=== PATIENT | female | born 1990 ===

== ENCOUNTER 2020-04-25 07:00 | Outpatient (CLI) | payer OTHER ==
[2020-04-26 20:53] LABS: CANDIDA KRUSEI DNA NEGATIVE (NEGATIVE); TRICHOMONAS VAGINALIS DNA NEGATIVE (NEGATIVE)
[2020-04-26 20:54] LABS: CANDIDA GROUP DNA POSITIVE (NEGATIVE)
== END 2020-04-25 23:59 | disposition home or self-care (01) ==
LOC: LAB.R 07:00
PROVIDERS: ATTEND Obstetrics & Gynecology
DX: N89.8 Other specified noninflammatory disorders of vagina (principal)
CPT/HCPCS: 87661; 87801

== ENCOUNTER 2020-05-09 07:00 | Outpatient (CLI) | payer OTHER ==
[2020-05-09 16:10] LABS: BILIRUBIN,URINE NEGATIVE (NEGATIVE); GLUCOSE, URINE (UA) 250 mg/dL (NEGATIVE); KETONES,URINE (UA) NEGATIVE (NEGATIVE); LEUKOCYTE ESTERASE, URINE NEGATIVE (NEGATIVE); NITRITE,URINE NEGATIVE (NEGATIVE); OCCULT BLOOD,URINE NEGATIVE (NEGATIVE); PH,URINE 6.5 PH (5.0-7.5); PROTEIN,URINE NEGATIVE (NEGATIVE); UROBILINOGEN,URINE 0.2 (NORMAL) E.U./dL (NORMAL)
[2020-05-09 16:18] LABS: CLARITY,URINE CLOUDY (CLEAR)
[2020-05-09 16:19] LABS: BACTERIA,URINE None Seen /HPF (None Seen); RBC,URINE None Seen /HPF (0-5); SQUAMOUS EPITHELIAL CELL,UR MANY Squamous (<= Few)
[2020-05-09 20:10] LABS: CANDIDA GROUP DNA NEGATIVE (NEGATIVE); CANDIDA KRUSEI DNA NEGATIVE (NEGATIVE); TRICHOMONAS VAGINALIS DNA NEGATIVE (NEGATIVE)
== END 2020-05-09 23:59 | disposition home or self-care (01) ==
LOC: LAB.R 07:00
PROVIDERS: ATTEND Obstetrics & Gynecology
DX: Z36.89 Encounter for other specified antenatal screening (principal); N89.8 Other specified noninflammatory disorders of vagina
CPT/HCPCS: 81001; 87086; 87661; 87801

== ENCOUNTER 2020-05-10 09:29 | Outpatient (CLI) | payer OTHER ==
[2020-05-10 09:43] LABS: BASOPHILS % (AUTO) 0.3 %; EOSINOPHILS # (AUTO) 0.1 10^3/uL (0.0-0.7); EOSINOPHILS % (AUTO) 1.9 %; HGB - HEMOGLOBIN 11.7 g/dL (12.0-16.0); LYMPHOCYTES # (AUTO) 1.6 10^3/uL (1.5-3.5); MEAN CORPUSCULAR HEMOGLOBIN 29.5 pg (27.0-31.0); MEAN CORPUSCULAR VOLUME 89.4 fL (81.0-99.0); MEAN PLATELET VOLUME 10.1 fL (7.9-10.8); MONOCYTES # (AUTO) 0.5 10^3/uL (0.0-1.0); MONOCYTES % (AUTO) 7.3 %; NEUTROPHILS # (AUTO) 4.7 10^3/uL (1.5-6.6); NEUTROPHILS % (AUTO) 67.1 %; PLT - PLATELET COUNT 278 10^3/uL (130-450); RED BLOOD COUNT 3.97 10^6/uL (4.20-5.40)
[2020-05-11 09:46] LABS: HIV AG/AB 4TH GEN NON-REACTIVE (NON-REACTIVE)
[2020-05-11 13:46] LABS: HEPATITIS B SURFACE ANTIGEN NON-REACTIVE (NON-REACTIVE); HEPATITIS C ANTIBODY NON-REACTIVE (NON-REACTIVE)
== END 2020-05-10 09:30 | disposition home or self-care (01) ==
LOC: LAB 09:29
PROVIDERS: ATTEND Obstetrics & Gynecology
DX: Z36.89 Encounter for other specified antenatal screening (principal)
CPT/HCPCS: 36415; 81599; 85025; 86592; 86762; 86803; 86850; 86900; 86901; 87340; 87389

== ENCOUNTER 2020-05-24 09:52 | Outpatient (CLI) | payer OTHER ==
[2020-05-24 10:50] LABS: THYROID STIMULATING HORMONE 2.26 uIU/mL (0.34-5.60)
[2020-05-24 10:52] LABS: FREE T4 (FREE THYROXINE) 0.88 ng/dL (0.58-1.64)
[2020-05-24 11:54] LABS: HEMOGLOBIN A1c% 6.6 % (4.27-6.07)
== END 2020-05-24 09:53 | disposition home or self-care (01) ==
LOC: LAB 09:52
PROVIDERS: ATTEND Obstetrics & Gynecology
DX: O24.019 Pre-existing type 1 diabetes mellitus, in pregnancy, unspecified trimester (principal); E10.9 Type 1 diabetes mellitus without complications; Z3A.00 Weeks of gestation of pregnancy not specified
CPT/HCPCS: 36415; 83036; 84439; 84443

== ENCOUNTER 2020-06-06 07:00 | Outpatient (CLI) | payer OTHER ==
[2020-06-06 17:37] LABS: CREATININE 24 HOUR,URINE 1693 mg/24h (600-1800); CREATININE,URINE 67.7 mg/dL; TOTAL VOLUME 24HRS,URINE 2500 mL
[2020-06-06 17:47] LABS: TOTAL PROTEIN,URINE TIMED < 6 mg/dL
== END 2020-06-06 23:59 | disposition home or self-care (01) ==
LOC: LAB.R 07:00
PROVIDERS: ATTEND Obstetrics & Gynecology
DX: O09.90 Supervision of high risk pregnancy, unspecified, unspecified trimester (principal); E10.9 Type 1 diabetes mellitus without complications
CPT/HCPCS: 82570; 84156

== ENCOUNTER 2020-09-23 08:41 | Outpatient (CLI) | payer BC ==
[2020-09-23 09:55] VITALS: BP 115/65
[2020-09-23] MEDS ORDERED: FERRIC GLUCONATE 125 MG in SODIUM CHLORIDE 0.9% 100ML 100 ML IV ONE (10:00)
--- NOTE | 2020-10-05 07:46 | PROVIDER PROGRESS NOTE ---
Subjective - Subjective Subjective: Pt received IV iron transfusion on 09/23/20 Diagnosis: iron deficiency anemia, chronic
== END 2020-09-23 11:10 | disposition home or self-care (01) ==
LOC: WFO 08:41 → FBP 08:56 → WFO 11:10
PROVIDERS: ATTEND Obstetrics & Gynecology
DX: O99.019 Anemia complicating pregnancy, unspecified trimester (principal); D50.9 Iron deficiency anemia, unspecified; Z3A.00 Weeks of gestation of pregnancy not specified
CPT/HCPCS: 96365; J2916

== ENCOUNTER 2020-10-02 07:55 | Outpatient (CLI) | payer BC ==
[2020-10-02 09:20] VITALS: BP 109/82
--- NOTE | 2020-10-04 08:53 | PROCEDURE REPORT ---
- HPI Diagnosis/Indication for NST: Pre- Diabetes Current EDU 11/26/20 Gestation 32 Weeks and 1 Days 2 Para 1 Vital Signs Temperature 99.1 F 10/02/20 08:05 Heart Rate 92 10/02/20 08:05 Respiratory Rate 18 10/02/20 08:05 Blood Pressure 109/82 H 10/02/20 08:05 O2 Saturation 100 10/02/20 08:05 Temperature 99.1 F 10/02/20 08:05 Heart Rate 92 10/02/20 08:05 Respiratory Rate 18 10/02/20 08:05 Blood Pressure 109/82 H 10/02/20 08:05 O2 Saturation 100 10/02/20 08:05 - NST Procedure NST Procedure Start Date 10/02/20 Start Time 08:04 Stop Time 08:36 Vibroacoustic Stimulation Used Yes Patient States Movement Yes EFM 135 mod martin 15x15 accels no decels TOCO: quiet - Results and Plan Findings/Impression: 30 yo at 32+1 wga with complicated by Type I DM here for NST Cat I tracing Cont twice weekly NST and weekly YA Q4 week growth Delivery at [facility] DX: IUP at 32+1 T1DM
--- NOTE | 2020-10-06 21:49 | PROCEDURE REPORT ---
- HPI Diagnosis/Indication for NST: Pre- Diabetes Current EDU 11/26/20 Gestation 32 Weeks and 1 Days 2 Para 1 Vital Signs Temperature 99.1 F 10/02/20 08:05 Heart Rate 92 10/02/20 08:05 Respiratory Rate 18 10/02/20 08:05 Blood Pressure 109/82 H 10/02/20 08:05 O2 Saturation 100 10/02/20 08:05 Temperature 99.1 F 10/02/20 08:05 Heart Rate 92 10/02/20 08:05 Respiratory Rate 18 10/02/20 08:05 Blood Pressure 109/82 H 10/02/20 08:05 O2 Saturation 100 10/02/20 08:05 - NST Procedure NST Procedure Start Date 10/02/20 Start Time 08:04 Stop Time 08:36 Vibroacoustic Stimulation Used Yes Patient States Movement Yes EFM 140 mod martin 15x15 accel no decels TOCO: quiet - Results and Plan Findings/Impression: 30 yo at 32+1 wga with T1DM here for NST Cat I tracing Cont with twice weekly monitoring and weekly YA Plans to deliver at [facility] DX: Type I DM in
== END 2020-10-02 08:45 | disposition home or self-care (01) ==
LOC: WFO 07:55 → FBP 07:59 → WFO 08:45
PROVIDERS: ATTEND Obstetrics & Gynecology
DX: O24.013 Pre-existing type 1 diabetes mellitus, in pregnancy, third trimester (principal); Z3A.32 32 weeks gestation of pregnancy
CPT/HCPCS: 59025

== ENCOUNTER 2020-10-05 09:42 | Outpatient (CLI) | payer BC ==
[2020-10-05 09:53] VITALS: BP 125/75
== END 2020-10-05 10:15 | disposition home or self-care (01) ==
LOC: WFO 09:42 → FBP 09:46 → WFO 10:15
PROVIDERS: ATTEND Obstetrics & Gynecology
DX: O09.93 Supervision of high risk pregnancy, unspecified, third trimester (principal); O24.013 Pre-existing type 1 diabetes mellitus, in pregnancy, third trimester; O99.013 Anemia complicating pregnancy, third trimester; D64.9 Anemia, unspecified; Z3A.32 32 weeks gestation of pregnancy
CPT/HCPCS: 59025

== ENCOUNTER 2020-10-05 10:16 | Outpatient (CLI) | payer BC ==
--- NOTE | 2020-10-05 14:18 | Ultrasound Report ---
PROCEDURE: OB Limited INDICATIONS: ANEMIA IN , DM, SUPER OF HIGH RISK PREG OUTSIDE/PRIOR DATING DATA: Last menstrual period (LMP): 02/20/2020. LMP-based estimated date of delivery (DAYANARA): 11/26/2020. First dating scan (date and location): Outside facility on 04/22/2020. Estimated date of delivery (DAYANARA) from first dating scan: 11/26/2020 (provider stated). TECHNIQUE: Real-time scanning was performed of the fetus, with image documentation. Endovaginal scanning: Not performed COMPARISON: 04/22/2020. FINDINGS: A single living intrauterine gestation is present. Presentation: Vertex Placenta: Placental position is right lateral anterior, without previa. Amniotic fluid index: 15.3 cm, 56 percentile for gestational age. Largest pocket: 6.9 cm heart rate: 153 beats per minutes. Maternal cervical canal: Visibly long and closed. Estimated gestational age from initial scan: 32 weeks and 4 days Visualized portions of the chest/diaphragm, stomach/abdomen, bilateral kidneys, and urinary robina dder appear unremarkable.. IMPRESSION: Single living intrauterine gestation with estimated gestational age of approximately 32 weeks and 4 d ays. Four-quadrant YA measures 15.3 cm which correlates with the 56th percentile for gestational age. Lar gest pocket measures 6.9 cm. Reviewed by: Jose F Munoz MD on 10/05/2020 2:16 PM PST Approved by: Jose F Munoz MD on 10/05/2020 2:16 PM PST Station ID: [id number]
--- NOTE | 2020-10-06 21:53 | PROCEDURE REPORT ---
- HPI Diagnosis/Indication for NST: Gestational Diabetes 30 yo at 32+4 wga with Type I DM here for NST - NST Procedure NST Procedure Start Time 09:50 Stop Time 10:14 EFM 140 mod martin 15x15 accels no decels TOCO: quiet - Results and Plan Findings/Impression: 30 yo at 32+4 wga with T1DM here for NST Cat I tracing Cont with twice weekly NST and weekly YA Deliver at 39 wga or as per M Plans to delivery at [facility] DX: Type I DM and
== END 2020-10-05 10:17 | disposition home or self-care (01) ==
LOC: DI 10:16
PROVIDERS: ATTEND Obstetrics & Gynecology
DX: O99.013 Anemia complicating pregnancy, third trimester (principal); D64.9 Anemia, unspecified; O09.93 Supervision of high risk pregnancy, unspecified, third trimester; O24.013 Pre-existing type 1 diabetes mellitus, in pregnancy, third trimester; E10.9 Type 1 diabetes mellitus without complications; Z3A.32 32 weeks gestation of pregnancy

== ENCOUNTER 2020-10-10 17:30 | Outpatient (CLI) | payer BC ==
[2020-10-10 17:49] VITALS: BP 120/76
--- NOTE | 2020-10-13 08:38 | PROCEDURE REPORT ---
- HPI Diagnosis/Indication for NST: Gestational Diabetes Current EDU 11/26/20 Gestation 33 Weeks and 2 Days 2 Para 1 Vital Signs Temperature 37.1 C 10/10/20 17:42 Heart Rate 97 10/10/20 17:42 Respiratory Rate 18 10/10/20 17:42 Blood Pressure 120/76 10/10/20 17:42 O2 Saturation 98 10/10/20 17:42 Temperature 37.1 C 10/10/20 17:42 Heart Rate 97 10/10/20 17:42 Respiratory Rate 18 10/10/20 17:42 Blood Pressure 120/76 10/10/20 17:42 O2 Saturation 98 10/10/20 17:42 - NST Procedure NST Procedure Start Date 10/10/20 Start Time 17:39 Stop Time 17:59 Vibroacoustic Stimulation Used No Patient States Movement Yes - Results and Plan Findings/Impression: REACTIVE NST Plan: CONTINUE ANTINATAL TESTING
== END 2020-10-10 18:04 | disposition home or self-care (01) ==
LOC: WFO 17:30 → FBP 17:34 → WFO 18:04
PROVIDERS: ATTEND Obstetrics & Gynecology
DX: O24.419 Gestational diabetes mellitus in pregnancy, unspecified control (principal); Z3A.33 33 weeks gestation of pregnancy
CPT/HCPCS: 59025

== ENCOUNTER 2020-10-12 08:05 | Outpatient (CLI) | payer BC ==
--- NOTE | 2020-10-12 17:08 | Ultrasound Report ---
PROCEDURE: OB Limited INDICATIONS: ANEMIA IN , DM, SUPER OF HIGH RISK PREG OUTSIDE/PRIOR DATING DATA: Last menstrual period (LMP): 02/20/2020. LMP-based estimated date of delivery (DAYANARA): 11/26/2020. First dating scan (date and location): 04/22/2020 at outside institution. Estimated date of delivery (DAYANARA) from first dating scan: 11/26/2020 (provider stated DAYANARA). TECHNIQUE: Real-time scanning was performed of the fetus, with image documentation. Endovaginal scanning: Not performed COMPARISON: 10/05/2020 FINDINGS: A single living intrauterine gestation is present. Presentation: Vertex Placenta: Placental position is right lateral anterior, without previa. Amniotic fluid index: 15.1 cm, this correlates with the 55th percentile for gestational age. heart rate: 143 beats per minutes. Maternal cervical canal: Maternal cervix appears visibly long and closed. Estimated gestational age from initial scan: 33 weeks and 4 days. IMPRESSION: 1. Single living intrauterine gestation with estimated gestational age of approximately 33 weeks and 4 days. 2. Four-quadrant YA measuring 15.1 cm which correlates with the 55th percentile for gestational age. Largest vertical pocket measured 7.5 cm. Reviewed by: Jose F Munoz MD on 10/12/2020 5:07 PM PST Approved by: Jose F Munoz MD on 10/12/2020 5:07 PM PST Station ID: [id number]
== END 2020-10-12 08:06 | disposition home or self-care (01) ==
LOC: DI 08:05
PROVIDERS: ATTEND Obstetrics & Gynecology
DX: O99.019 Anemia complicating pregnancy, unspecified trimester (principal); O09.90 Supervision of high risk pregnancy, unspecified, unspecified trimester; O24.919 Unspecified diabetes mellitus in pregnancy, unspecified trimester; Z3A.33 33 weeks gestation of pregnancy

== ENCOUNTER 2020-10-12 08:35 | Outpatient (CLI) | payer BC ==
[2020-10-12 08:48] VITALS: BP 112/69
--- NOTE | 2020-10-22 22:15 | PROCEDURE REPORT ---
- HPI Diagnosis/Indication for NST: Pre- Diabetes Current EDU 11/26/20 Gestation 33 Weeks and 4 Days 2 Para 1 Vital Signs Heart Rate 97 10/12/20 08:46 Respiratory Rate 17 10/12/20 08:46 Blood Pressure 112/69 10/12/20 08:46 O2 Saturation 99 10/12/20 08:46 Temperature 98.2 F 10/12/20 08:48 Heart Rate 97 10/12/20 08:46 Respiratory Rate 17 10/12/20 08:46 Blood Pressure 112/69 10/12/20 08:46 O2 Saturation 99 10/12/20 08:46 - NST Procedure NST Procedure Start Date 10/12/20 Start Time 08:45 Stop Time 09:30 Vibroacoustic Stimulation Used Yes Patient States Movement Yes EFM 130 mod martin 15x15 accels no decel TOCO: quiet - Results and Plan Findings/Impression: Patient is a 30 yo at 33+4 wga with affected by Type I DM here for NST and YA Cat I tracing YA 15.3 Cont with twice weekly NST and weekly YA Delivery at at 39 wga FINAL DX: IUP at 33+4 Type I DM
== END 2020-10-12 09:45 | disposition home or self-care (01) ==
LOC: FBP 08:35 → WFO 08:35
PROVIDERS: ATTEND Obstetrics & Gynecology
DX: O09.90 Supervision of high risk pregnancy, unspecified, unspecified trimester (principal); O24.013 Pre-existing type 1 diabetes mellitus, in pregnancy, third trimester; O99.019 Anemia complicating pregnancy, unspecified trimester; Z3A.33 33 weeks gestation of pregnancy
CPT/HCPCS: 59025

== ENCOUNTER 2020-10-16 09:47 | Outpatient (CLI) | payer BC ==
[2020-10-16 10:04] VITALS: BP 113/80
--- NOTE | 2020-10-22 22:11 | PROCEDURE REPORT ---
- HPI Diagnosis/Indication for NST: Pre- Diabetes Current EDU 11/26/20 Gestation 34 Weeks and 1 Days 2 Para 1 Vital Signs Temperature 98.2 F 10/16/20 10:02 Heart Rate 103 H 10/16/20 10:02 Respiratory Rate 18 10/16/20 10:02 Blood Pressure 113/80 10/16/20 10:02 O2 Saturation 100 10/16/20 10:02 Temperature 98.2 F 10/16/20 10:02 Heart Rate 103 H 10/16/20 10:02 Respiratory Rate 18 10/16/20 10:02 Blood Pressure 113/80 10/16/20 10:02 O2 Saturation 100 10/16/20 10:02 - NST Procedure NST Procedure Start Date 10/16/20 Start Time 09:57 Stop Time 10:45 Vibroacoustic Stimulation Used Yes Patient States Movement Yes EFM 145 mod martin 15x15 accels. one variable decel with 30 minutes of additional cat I tracing following TOCO: Quiet - Results and Plan Findings/Impression: Patient is a 30 yo at 34+1 wga with affected by T1DM here for NST Plan: Cat I tracing Cont with twice weekly NST and weekly YA To deliver at at 39 wga FINAL DX: Type I DM IUP at 34+1 wga
== END 2020-10-16 10:50 | disposition home or self-care (01) ==
LOC: WFO 09:47 → FBP 09:51 → WFO 10:50
PROVIDERS: ATTEND Obstetrics & Gynecology
DX: O24.013 Pre-existing type 1 diabetes mellitus, in pregnancy, third trimester (principal); Z3A.34 34 weeks gestation of pregnancy
CPT/HCPCS: 59025

== ENCOUNTER 2020-10-20 08:44 | Outpatient (CLI) | payer BC ==
--- NOTE | 2020-10-20 17:00 | Ultrasound Report ---
PROCEDURE: OB Limited INDICATIONS: ANEMIA IN , DM, SUPER OF HIGH RISK PREG OUTSIDE/PRIOR DATING DATA: Last menstrual period (LMP): 02/20/2020. LMP-based estimated date of delivery (DAYANARA): 11/26/2020. First dating scan (date and location): 04/22/2020. Estimated date of delivery (DAYANARA) from first dating scan: 11/23/2020. TECHNIQUE: Real-time scanning was performed of the fetus, with image documentation. Endovaginal scanning: Not needed COMPARISON: All prior OB ultrasound studies for this .. FINDINGS: A single living intrauterine gestation is present. Presentation: Vertex Placenta: Placental position is right lateral extending anteriorly, without previa. Amniotic fluid index: 19.3 cm, normal for gestational age. heart rate: 140 beats per minutes. Maternal cervical canal: Difficult to see due to vertex presentation of the cervix appears closed.. Estimated gestational age from initial scan: 34 weeks 5 days. IMPRESSION: Limited study at clinician request, amniotic fluid index is normal at 14.3 cm, at the 52 nd percentile. Reviewed by: Stewart Toledo MD on 10/20/2020 4:59 PM PST Approved by: Stewart Toledo MD on 10/20/2020 4:59 PM PST Station ID: [id number]
== END 2020-10-20 08:45 | disposition home or self-care (01) ==
LOC: DI 08:44
PROVIDERS: ATTEND Obstetrics & Gynecology
DX: O99.019 Anemia complicating pregnancy, unspecified trimester (principal); O09.90 Supervision of high risk pregnancy, unspecified, unspecified trimester; O24.913 Unspecified diabetes mellitus in pregnancy, third trimester; Z3A.34 34 weeks gestation of pregnancy

== ENCOUNTER 2020-10-20 09:27 | Outpatient (CLI) | payer BC ==
[2020-10-20 09:41] VITALS: BP 115/70
--- NOTE | 2020-10-20 17:42 | PROCEDURE REPORT ---
- HPI Diagnosis/Indication for NST: Pre- Diabetes (Type 1) Current EDU 11/26/20 Gestation 34 Weeks and 5 Days 2 Para 1 Vital Signs Temperature 97.7 F 10/20/20 09:40 Heart Rate 101 H 10/20/20 09:40 Respiratory Rate 20 10/20/20 09:40 Blood Pressure 115/70 10/20/20 09:40 O2 Saturation 100 10/20/20 09:40 Temperature 97.7 F 10/20/20 09:40 Heart Rate 101 H 10/20/20 09:40 Respiratory Rate 20 10/20/20 09:40 Blood Pressure 115/70 10/20/20 09:40 O2 Saturation 100 10/20/20 09:40 - NST Procedure NST Procedure Start Date 10/20/20 Start Time 09:36 Stop Time 10:00 Vibroacoustic Stimulation Used No Patient States Movement Yes - Results and Plan Findings/Impression: Baseline: BPM 135 Variability: Moderate Accelerations: Present Decelerations: Absent Trends in FHR over time: no changes [place] contractions in 10 minutes: 0 Impression: reactive Category 1 NST
== END 2020-10-20 10:00 | disposition home or self-care (01) ==
LOC: WFO 09:27 → FBP 09:31 → WFO 10:00
PROVIDERS: ATTEND Obstetrics & Gynecology
DX: O09.90 Supervision of high risk pregnancy, unspecified, unspecified trimester (principal); O24.013 Pre-existing type 1 diabetes mellitus, in pregnancy, third trimester; O99.019 Anemia complicating pregnancy, unspecified trimester; D64.9 Anemia, unspecified; Z3A.34 34 weeks gestation of pregnancy
CPT/HCPCS: 59025

== ENCOUNTER 2020-10-25 09:14 | Outpatient (CLI) | payer BC ==
--- NOTE | 2020-10-25 12:14 | Ultrasound Report ---
PROCEDURE: OB Limited INDICATIONS: ANEMIA IN , DM, SUPER OF HIGH RISK PREG OUTSIDE/PRIOR DATING DATA: Last menstrual period (LMP): 02/20/2020. LMP-based estimated date of delivery (DAYANARA): 11/26/2020. First dating scan (date and location): 04/22/2020. Estimated date of delivery (DAYANARA) from first dating scan: 11/23/2020. TECHNIQUE: Real-time scanning was performed of the fetus, with image documentation. Endovaginal scanning: Not performed COMPARISON: None. FINDINGS: A single living intrauterine gestation is present. Presentation: Vertex Placenta: Placental position is anterior and maternal right, without previa. Amniotic fluid index: 15 cm, 56th percentile for gestational age. heart rate: 139 beats per minutes. Maternal cervical canal: Closed, 2.7 cm long; normal length is 2.5 cm or more. Estimated gestational age from initial scan: 35 weeks 3 days. IMPRESSION: Limited study at clinician request. Amniotic fluid index is 15 cm, 56th percentile Reviewed by: Jose Andino MD on 10/25/2020 11:12 AM [facility] Approved by: Jose Andino MD on 10/25/2020 11:12 AM [facility] Station ID: [id number]
== END 2020-10-25 09:15 | disposition home or self-care (01) ==
LOC: DI 09:14
PROVIDERS: ATTEND Obstetrics & Gynecology
DX: O99.019 Anemia complicating pregnancy, unspecified trimester (principal); O09.90 Supervision of high risk pregnancy, unspecified, unspecified trimester; O24.913 Unspecified diabetes mellitus in pregnancy, third trimester; Z3A.35 35 weeks gestation of pregnancy

== ENCOUNTER 2020-10-25 10:07 | Outpatient (CLI) | payer BC ==
[2020-10-25 10:22] VITALS: BP 123/86
--- NOTE | 2020-10-26 09:34 | PROCEDURE REPORT ---
- HPI Diagnosis/Indication for NST: Pre- Diabetes (Type 1) Current EDU 11/26/20 Gestation 35 Weeks and 3 Days 2 Para 1 Vital Signs Temperature 97.9 F 10/25/20 10:18 Heart Rate 104 H 10/25/20 10:18 Respiratory Rate 18 10/25/20 10:18 Blood Pressure 123/86 H 10/25/20 10:18 O2 Saturation 100 10/25/20 10:18 Temperature 97.9 F 10/25/20 10:18 Heart Rate 104 H 10/25/20 10:18 Respiratory Rate 18 10/25/20 10:18 Blood Pressure 123/86 H 10/25/20 10:18 O2 Saturation 100 10/25/20 10:18 - NST Procedure NST Procedure Start Date 10/25/20 Start Time 10:17 Stop Time 11:05 Vibroacoustic Stimulation Used No Patient States Movement Yes - Results and Plan Findings/Impression: Baseline: BPM 145 Variability: Moderate Accelerations: Present Decelerations: Absent Trends in FHR over time: no changes [place] contractions in 10 minutes: 0 Impression: reactive Category 1 NST
== END 2020-10-25 11:10 | disposition home or self-care (01) ==
LOC: WFO 10:07 → FBP 10:12 → WFO 11:10
PROVIDERS: ATTEND Obstetrics & Gynecology
DX: O09.90 Supervision of high risk pregnancy, unspecified, unspecified trimester (principal); O24.013 Pre-existing type 1 diabetes mellitus, in pregnancy, third trimester; E10.9 Type 1 diabetes mellitus without complications; O99.019 Anemia complicating pregnancy, unspecified trimester; D64.9 Anemia, unspecified; Z3A.35 35 weeks gestation of pregnancy
CPT/HCPCS: 59025

== ENCOUNTER 2020-11-02 14:33 | Outpatient (CLI) | payer BC ==
[2020-11-02 15:10] VITALS: BP 122/70
--- NOTE | 2020-11-02 17:31 | Ultrasound Report ---
PROCEDURE: OB Biophysical Profile INDICATIONS: diabetes in OUTSIDE/PRIOR DATING DATA: Last menstrual period (LMP): 02/20/2020. LMP-based estimated date of delivery (DAYANARA): 11/26/2020. First dating scan (date and location): 04/22/2020. Estimated date of delivery (DAYANARA) from first dating scan: 11/26/2020 (provider stated DAYANARA). TECHNIQUE: Real-time scanning was performed of the fetus, with image documentation and biometric jose surements. Biophysical profile was also obtained. Endovaginal scanning: Not performed COMPARISON: Multiple prior studies FINDINGS: General: A single living intrauterine gestation is present. Presentation: Vertex Placenta: Placental position is right anterolateral, without previa. Amniotic fluid index: 24 cm with deepest pocket measuring 8.3 cm, 94th for gestational age. heart rate: 133 beats per minute. Maternal cervical canal: Not well seen Biophysical profile: Tone: 2 points. Movement: 2 points. Respiration: 2 points. Largest pocket of fluid: 2 points. Umbilical artery Doppler: 1.8-2.5, normal IMPRESSION: 1. Single living intrauterine . 2. Amniotic fluid index at 94th percentile for gestational age. 3. Normal biophysical profile score. 4. Preliminary results given by the warp trucker to the ordering provider. Reviewed by: Amanda Cohn MD on 11/02/2020 4:30 PM [facility] Approved by: Amanda Cohn MD on 11/02/2020 4:30 PM [facility] Station ID: [id number]
--- NOTE | 2020-11-08 13:38 | PROCEDURE REPORT ---
- HPI Diagnosis/Indication for NST: Gestational Diabetes Current EDU 11/26/20 Gestation 36 Weeks and 4 Days 2 Para 1 Vital Signs Temperature 36.5 C 11/02/20 14:41 Heart Rate 115 H 11/02/20 14:41 Respiratory Rate 11/02/20 14:41 Blood Pressure 117/91 H 11/02/20 14:41 Temperature 36.5 C 11/02/20 14:41 Heart Rate 115 H 11/02/20 14:41 Respiratory Rate 11/02/20 14:41 Blood Pressure 122/70 11/02/20 15:00 O2 Saturation - NST Procedure NST Procedure Start Date 11/02/20 Start Time 14:40 Stop Time 15:04 Vibroacoustic Stimulation Used No Patient States Movement Yes - Results and Plan Findings/Impression: Reactive NST 04/22 BPP Plan: continue Antinatal testing
== END 2020-11-02 16:50 | disposition home or self-care (01) ==
LOC: WFO 14:33 → FBP 14:35 → WFO 16:50
PROVIDERS: ATTEND Obstetrics & Gynecology
DX: O24.419 Gestational diabetes mellitus in pregnancy, unspecified control (principal); Z3A.36 36 weeks gestation of pregnancy
CPT/HCPCS: 59025

== ENCOUNTER 2020-11-08 09:29 | Outpatient (CLI) | payer BC ==
[2020-11-08 09:43] VITALS: BP 119/81
--- NOTE | 2020-11-13 22:54 | PROCEDURE REPORT ---
- HPI Diagnosis/Indication for NST: Pre- Diabetes Current EDU 11/26/20 Gestation 37 Weeks and 3 Days 2 Para 1 Vital Signs Temperature 97.5 F L 11/08/20 09:41 Heart Rate 95 11/08/20 09:41 Respiratory Rate 18 11/08/20 09:41 Blood Pressure 119/81 H 11/08/20 09:41 Temperature 97.5 F L 11/08/20 09:41 Heart Rate 95 11/08/20 09:41 Respiratory Rate 18 11/08/20 09:41 Blood Pressure 119/81 H 11/08/20 09:41 O2 Saturation - NST Procedure NST Procedure Start Date 11/08/20 Start Time 09:40 Stop Time 10:09 Vibroacoustic Stimulation Used No Patient States Movement Yes EFM 135 mod martin 15x15 accels no decels TOCO: quiet - Results and Plan Findings/Impression: 30 yo at 37+3 wga with Type I DM here for NST Cat I tracing Cont with twice weekly NST and weekly YA Plans to deliver at via [facility] at 38 wga DX: Type I DM Hx of prior CS IUP at 37+3 wga
== END 2020-11-08 10:20 | disposition home or self-care (01) ==
LOC: WFO 09:29 → FBP 09:30 → WFO 10:20
PROVIDERS: ATTEND Obstetrics & Gynecology
DX: O24.013 Pre-existing type 1 diabetes mellitus, in pregnancy, third trimester (principal); Z3A.37 37 weeks gestation of pregnancy
CPT/HCPCS: 59025

== ENCOUNTER 2021-10-05 10:37 | Outpatient (CLI) | payer BC | END 2021-10-05 10:38 | disposition home or self-care (01) | LOC: LAB.N 10:37 | PROVIDERS: ATTEND Obstetrics & Gynecology | DX: N93.9 Abnormal uterine and vaginal bleeding, unspecified (principal); Z32.01 Encounter for pregnancy test, result positive | CPT/HCPCS: 36415; 84702 ==

== ENCOUNTER 2022-12-09 13:30 | Outpatient (CLI) | payer BC ==
[2022-12-10 11:21] LABS: BILIRUBIN,URINE NEGATIVE (NEGATIVE); GLUCOSE, URINE (UA) 250 mg/dL (NEGATIVE); KETONES,URINE (UA) TRACE mg/dL (NEGATIVE); LEUKOCYTE ESTERASE, URINE MODERATE (NEGATIVE); NITRITE,URINE NEGATIVE (NEGATIVE); OCCULT BLOOD,URINE NEGATIVE (NEGATIVE); PROTEIN,URINE NEGATIVE (NEGATIVE); UROBILINOGEN,URINE 0.2 (NORMAL) E.U./dL (NORMAL)
[2022-12-10 11:39] LABS: BACTERIA,URINE Few /HPF (None Seen); CLARITY,URINE HAZY (CLEAR); RBC,URINE 0-5 /HPF (0-5); SQUAMOUS EPITHELIAL CELL,UR MANY Squamous (<= Few)
== END 2022-12-09 13:31 | disposition home or self-care (01) ==
LOC: LAB.WC 13:30
PROVIDERS: ATTEND Obstetrics & Gynecology
DX: Z34.90 Encounter for supervision of normal pregnancy, unspecified, unspecified trimester (principal)
CPT/HCPCS: 81001; 87086

== ENCOUNTER 2022-12-10 16:50 | Outpatient (CLI) | payer OTHER ==
[2022-12-10 21:08] LABS: BASOPHILS % (AUTO) 0.5 %; EOSINOPHILS # (AUTO) 0.2 10^3/uL (0.0-0.7); EOSINOPHILS % (AUTO) 2.1 %; HGB - HEMOGLOBIN 13.1 g/dL (12.0-16.0); LYMPHOCYTES % (AUTO) 26.1 %; MEAN CORPUSCULAR HEMOGLOBIN 31.6 pg (27.0-31.0); MEAN CORPUSCULAR HGB CONC 33.6 g/dL (32.0-36.0); MEAN CORPUSCULAR VOLUME 94.2 fL (81.0-99.0); MEAN PLATELET VOLUME 11.1 fL (7.9-10.8); MONOCYTES # (AUTO) 0.6 10^3/uL (0.0-1.0); MONOCYTES % (AUTO) 7.6 %; NEUTROPHILS # (AUTO) 4.7 10^3/uL (1.5-6.6); NEUTROPHILS % (AUTO) 63.3 %; PLT - PLATELET COUNT 277 10^3/uL (130-450); RED BLOOD COUNT 4.14 10^6/uL (4.20-5.40); RED CELL DISTRIBUTION WIDTH 12.5 % (12.0-15.0); WHITE BLOOD COUNT 7.5 x10^3/uL (4.8-10.8)
[2022-12-10 21:16] LABS: BILIRUBIN,URINE NEGATIVE (NEGATIVE); GLUCOSE, URINE (UA) NEGATIVE (NEGATIVE); KETONES,URINE (UA) NEGATIVE (NEGATIVE); LEUKOCYTE ESTERASE, URINE NEGATIVE (NEGATIVE); NITRITE,URINE NEGATIVE (NEGATIVE); OCCULT BLOOD,URINE NEGATIVE (NEGATIVE); PH,URINE 5.5 PH (5.0-7.5); PROTEIN,URINE NEGATIVE (NEGATIVE); UROBILINOGEN,URINE 0.2 (NORMAL) E.U./dL (NORMAL)
[2022-12-10 21:18] LABS: CLARITY,URINE CLEAR (CLEAR)
[2022-12-10 21:31] LABS: BACTERIA,URINE None Seen /HPF (None Seen); RBC,URINE 0-5 /HPF (0-5); SQUAMOUS EPITHELIAL CELL,UR RARE Squamous (<= Few); WBC,URINE 0-3 /HPF (0-5)
[2022-12-12 07:10] LABS: RPR Non Reactive (Non Reactive)
[2022-12-12 08:10] LABS: HBsAG SCREEN Negative (Negative)
[2022-12-12 09:09] LABS: HIV SCREEN 4TH GENERATION Non Reactive (Non Reactive)
[2022-12-12 10:09] LABS: HCV AB Non Reactive (Non Reactive)
[2022-12-12 11:10] LABS: VARICELLA-ZOSTER AB IGG 248 index (Immune >165)
== END 2022-12-10 16:51 | disposition home or self-care (01) ==
LOC: LAB.N 16:50
PROVIDERS: ATTEND Obstetrics & Gynecology
DX: Z34.90 Encounter for supervision of normal pregnancy, unspecified, unspecified trimester (principal)
CPT/HCPCS: 36415; 81001; 85025; 86592; 86762; 86787; 86803; 86850; 86900; 86901; 87086; 87340; 87389

== ENCOUNTER 2022-12-19 21:55 | Outpatient (CLI) | payer OTHER ==
--- NOTE | 2022-12-20 16:52 | Ultrasound Report ---
PROCEDURE: OB First Trimester w/TV INDICATIONS: POSITIVE TEST OUTSIDE/PRIOR DATING DATA: Last menstrual period (LMP): 10/28/2022. LMP-based estimated date of delivery (DAYANARA): 08/04/2023. First dating scan (date and location): 12/19/2022. Estimated date of delivery (DAYANARA) from first dating scan: 08/04/2023. TECHNIQUE: Real-time scanning was performed of the fetus and maternal pelvic organs, with image documentation. Endovaginal scanning was also performed to better visualize the fetus and maternal ovaries. COMPARISON: None FINDINGS: Embryo: Single live anterior is identified with crown-rump length measuring 1.25 cm corres ponding to 7 weeks 3 days. Small subchorionic hemorrhage is present measuring 2.4 x 1.4 x 2.3 cm. Heart rate: 150 bpm. Measurement variability in dating: +/- 4 weeks by LMP, +/- 7 days by mean sac diameter (use before 6 weeks gestation if crown-rump length not able to be measured), +/- 5 days by crown-rump length (6-12 weeks gestation). Maternal organs: Ovaries left corpus luteal cyst is present. There is somewhat heterogeneous appeara nce of the remaining left ovary.. IMPRESSION: Single live intrauterine is identified with crown-rump length corresponding to 7 weeks 3 da ys. Small subchorionic hemorrhage. Heterogeneous appearance of the left ovary excluding the left corpus luteal cyst. This could simply b e secondary to imaging technique. Follow-up of this region is recommended on subsequent imaging. Reviewed by: Sanjana Rivera MD on 12/20/2022 4:51 PM PDT Approved by: Sanjana Rivera MD on 12/20/2022 4:51 PM PDT Station ID: [id number]
== END 2022-12-19 21:56 | disposition home or self-care (01) ==
LOC: DI 21:55
PROVIDERS: ATTEND Obstetrics & Gynecology
DX: O20.8 Other hemorrhage in early pregnancy (principal); O34.81 Maternal care for other abnormalities of pelvic organs, first trimester; N83.12 Corpus luteum cyst of left ovary; Z3A.01 Less than 8 weeks gestation of pregnancy

== ENCOUNTER 2023-01-13 16:47 | Outpatient (CLI) | payer OTHER ==
[2023-01-13 17:31] LABS: ALBUMIN 3.6 g/dL (3.2-5.5); ALBUMIN/GLOBULIN RATIO 1.1 (1.0-2.2); BILIRUBIN,TOTAL 0.4 mg/dL (0.2-1.0); CALCIUM 8.4 mg/dL (8.5-10.3); CREATININE 0.7 mg/dL (0.4-1.0); POTASSIUM 3.7 mmol/L (3.5-5.0)
[2023-01-13 20:47] LABS: ESTIMATED AVERAGE GLUCOSE 151 mg/dL (70-100); HEMOGLOBIN A1c% 6.9 % (4.27-6.07)
== END 2023-01-13 16:48 | disposition home or self-care (01) ==
LOC: LAB 16:47
PROVIDERS: ATTEND Obstetrics & Gynecology
DX: E10.9 Type 1 diabetes mellitus without complications (principal)
CPT/HCPCS: 36415; 80053; 83036

== ENCOUNTER 2023-01-14 08:00 | Outpatient (CLI) | payer OTHER ==
[2023-01-15 15:26] LABS: CHLAMYDIA TRACHOMATIS DNA NEGATIVE (NEGATIVE); NEISSERIA GONORRHOEAE DNA NEGATIVE (NEGATIVE)
[2023-01-15 19:44] LABS: BACTERIAL VAGINOSIS DNA NEGATIVE (NEGATIVE); CANDIDA GROUP DNA POSITIVE (NEGATIVE); CANDIDA KRUSEI DNA NEGATIVE (NEGATIVE); TRICHOMONAS VAGINALIS DNA NEGATIVE (NEGATIVE)
[2023-01-15 19:45] LABS: CANDIDA GLABRATA DNA NEGATIVE (NEGATIVE)
== END 2023-01-14 23:59 | disposition home or self-care (01) ==
LOC: LAB.R 08:00
PROVIDERS: ATTEND Obstetrics & Gynecology
DX: N76.0 Acute vaginitis (principal); Z11.3 Encounter for screening for infections with a predominantly sexual mode of transmission
CPT/HCPCS: 81514; 87491; 87591; 87661

== ENCOUNTER 2023-01-19 08:00 | Outpatient (CLI) | payer OTHER | END 2023-01-19 23:59 | disposition home or self-care (01) | LOC: LAB.WC 08:00 | PROVIDERS: ATTEND Obstetrics & Gynecology | DX: E10.9 Type 1 diabetes mellitus without complications (principal) | CPT/HCPCS: 81599; 82570; 84156 ==

== ENCOUNTER 2023-05-15 16:59 | Outpatient (CLI) | payer OTHER ==
[2023-05-15 20:29] LABS: HGB - HEMOGLOBIN 11.2 g/dL (12.0-16.0); MEAN CORPUSCULAR HGB CONC 32.9 g/dL (32.0-36.0); MEAN CORPUSCULAR VOLUME 94.2 fL (81.0-99.0); MEAN PLATELET VOLUME 11.4 fL (7.9-10.8); RED BLOOD COUNT 3.61 10^6/uL (4.20-5.40); RED CELL DISTRIBUTION WIDTH 14.4 % (12.0-15.0); WHITE BLOOD COUNT 9.7 x10^3/uL (4.8-10.8)
[2023-05-15 21:26] LABS: ESTIMATED AVERAGE GLUCOSE 148 mg/dL (70-100); HEMOGLOBIN A1c% 6.8 % (4.27-6.07)
== END 2023-05-15 17:00 | disposition home or self-care (01) ==
LOC: LAB.N 16:59
PROVIDERS: ATTEND Nurse Practitioner
DX: O34.211 Maternal care for low transverse scar from previous cesarean delivery (principal); O24.919 Unspecified diabetes mellitus in pregnancy, unspecified trimester
CPT/HCPCS: 36415; 83036; 85027

== ENCOUNTER 2023-06-20 17:38 | Outpatient (CLI) | payer OTHER ==
[2023-06-20 17:59] VITALS: BP 121/86; O2SAT 100
--- NOTE | 2023-06-21 22:26 | PROCEDURE REPORT ---
- HPI Diagnosis/Indication for NST: Gestational Diabetes Current EDU 08/04/23 Gestation 33 Weeks and 4 Days 3 Para 2 Vital Signs Temperature 98.1 F 06/20/23 17:56 Heart Rate 92 06/20/23 17:56 Respiratory Rate 18 06/20/23 17:56 Blood Pressure 121/86 H 06/20/23 17:56 O2 Saturation 100 06/20/23 17:56 Temperature 98.1 F 06/20/23 18:03 Heart Rate 92 06/20/23 17:56 Respiratory Rate 18 06/20/23 17:56 Blood Pressure 121/86 H 06/20/23 17:56 O2 Saturation 100 06/20/23 17:56 If not protocol: Oxygen Flow, liters/minute - NST Procedure NST Procedure Start Date 06/20/23 Start Time 17:50 Stop Time 18:51 Vibroacoustic Stimulation Used No Patient States Movement Yes NST reviewed baseline 150. moderated variability. + acels. no decels. assessment: reactive. bp was elevated slightly so PIH labs ordered and normal. - Results and Plan Findings/Impression: normal NST. continue as planned
== END 2023-06-20 18:17 | disposition home or self-care (01) ==
LOC: WFO 17:38 → FBP 17:39 → WFO 18:17
PROVIDERS: ATTEND Obstetrics & Gynecology
DX: O24.419 Gestational diabetes mellitus in pregnancy, unspecified control (principal); Z3A.33 33 weeks gestation of pregnancy
CPT/HCPCS: 59025

== ENCOUNTER 2023-06-20 18:21 | Outpatient (CLI) | payer OTHER ==
--- NOTE | 2023-06-20 21:24 | Ultrasound Report ---
PROCEDURE: OB Biophysical Profile INDICATIONS: DIABETES OUTSIDE/PRIOR DATING DATA: Last menstrual period (LMP): 10/28/2022. LMP-based estimated date of delivery (DAYANARA): 08/04/2023. First dating scan (date and location): 12/19/2022. Estimated date of delivery (DAYANARA) from first dating scan: 08/04/2023. The below data below was generated using the clinical DAYANARA of 08/04/2023 TECHNIQUE: Real-time scanning was performed of the fetus, with image documentation and biometric jose surements. Biophysical profile was also obtained. Endovaginal scanning: Not performed COMPARISON: 06/06/2023 FINDINGS: General: A single living intrauterine gestation is present. Presentation: Vertex Placenta: Placental position is anterior, without previa. Amniotic fluid index: 13.3 cm, largest pocket is 4.9 cm, normal for gestational age. heart rate: 144 beats per minute. Maternal cervical canal: Closed and 3.9 cm long; normal length is 2.5 cm or more. Biophysical profile: Tone: 2 points. Movement: 2 points. Respiration: 2 points. Largest pocket of fluid: 2 points. Umbilical artery Doppler: 2.4, 2.6, 2.4, normal. Possible single nuchal cord per technologist. IMPRESSION: 1. Single living intrauterine in vertex presentation. 2. Normal biophysical profile. 3. Normal umbilical artery Doppler. 4. Closed cervix and normal amniotic fluid volume. Reviewed by: Amanda Cohn MD on 06/20/2023 9:23 PM PDT Approved by: Amanda Cohn MD on 06/20/2023 9:23 PM PDT Station ID: [id number]
== END 2023-06-20 18:22 | disposition home or self-care (01) ==
LOC: DI 18:21
PROVIDERS: ATTEND Obstetrics & Gynecology
DX: O24.919 Unspecified diabetes mellitus in pregnancy, unspecified trimester (principal); Z3A.00 Weeks of gestation of pregnancy not specified

== ENCOUNTER 2023-06-25 08:00 | Outpatient (CLI) | payer OTHER | END 2023-06-25 23:59 | disposition home or self-care (01) | LOC: LAB.WC 08:00 | PROVIDERS: ATTEND Obstetrics & Gynecology | DX: Z36.85 Encounter for antenatal screening for Streptococcus B (principal) | CPT/HCPCS: 87797 ==

== ENCOUNTER 2023-06-26 17:43 | Outpatient (CLI) | payer OTHER ==
[2023-06-26 18:01] VITALS: BP 136/86; O2SAT 100
--- NOTE | 2023-06-26 21:06 | PROCEDURE REPORT ---
- HPI Diagnosis/Indication for NST: Gestational Diabetes Current EDU 08/04/23 Gestation 34 Weeks and 3 Days 3 Para 2 Vital Signs Temperature 98.1 F 06/26/23 17:56 Heart Rate 94 06/26/23 17:56 Respiratory Rate 17 06/26/23 17:56 Blood Pressure 139/90 H 06/26/23 17:56 O2 Saturation 100 06/26/23 17:56 Temperature 98.1 F 06/26/23 18:32 Heart Rate 94 06/26/23 17:56 Respiratory Rate 17 06/26/23 17:56 Blood Pressure 136/86 H 06/26/23 18:00 O2 Saturation 100 06/26/23 17:56 If not protocol: Oxygen Flow, liters/minute - NST Procedure NST Procedure Start Date 06/26/23 Start Time 18:10 Stop Time 18:32 Vibroacoustic Stimulation Used No Patient States Movement Yes 140 mod martin + A cells no D cells, reactive - Results and Plan Findings/Impression: reactive NST, continue ANC as scheduled Plan: OK to D/C home and continue with scheduled care
== END 2023-06-26 18:35 | disposition home or self-care (01) ==
LOC: WFO 17:43 → FBP 17:45 → WFO 18:35
PROVIDERS: ATTEND Obstetrics & Gynecology
DX: O24.419 Gestational diabetes mellitus in pregnancy, unspecified control (principal); Z3A.34 34 weeks gestation of pregnancy
CPT/HCPCS: 59025

== ENCOUNTER 2023-06-26 18:41 | Outpatient (CLI) | payer OTHER ==
--- NOTE | 2023-06-27 11:27 | Ultrasound Report ---
PROCEDURE: OB Biophysical Profile INDICATIONS: DIABETES OUTSIDE/PRIOR DATING DATA: Last menstrual period (LMP): 10/28/2022. LMP-based estimated date of delivery (DAYANARA): 08/04/2023. First dating scan (date and location): 12/19/2022. Estimated date of delivery (DAYANARA) from first dating scan: 08/04/2023. The below data below was generated using the ultrasound DAYANARA of 08/04/2023 TECHNIQUE: Real-time scanning was performed of the fetus, with image documentation and biometric jose surements. Biophysical profile was also obtained. Endovaginal scanning: Not performed COMPARISON: None. FINDINGS: General: A single living intrauterine gestation is present. Presentation: Vertex Placenta: Placental position is anterior, without previa. Amniotic fluid index: 17.8 cm, normal for gestational age. heart rate: 136 beats per minute. Maternal cervical canal not imaged. Biophysical profile: Tone: 2 points. Movement: 2 points. Respiration: 2 points. Largest pocket of fluid: 2 points. Umbilical artery Doppler: Normal waveform. IMPRESSION: Single living intrauterine at 34 weeks 3 days, DAYANARA of 08/04/2023. BPP 8 of 8. Normal umbilical artery waveform. Reviewed by: Alber Recio on 06/27/2023 11:25 AM PDT Approved by: Alber Recio on 06/27/2023 11:25 AM PDT Station ID: [id number]
== END 2023-06-26 18:42 | disposition home or self-care (01) ==
LOC: DI 18:41
PROVIDERS: ATTEND Obstetrics & Gynecology
DX: O24.019 Pre-existing type 1 diabetes mellitus, in pregnancy, unspecified trimester (principal)

== ENCOUNTER 2023-06-30 18:08 | Outpatient (CLI) | payer OTHER ==
--- NOTE | 2023-06-30 18:36 | PROCEDURE REPORT ---
- HPI Vital Signs Temperature 97.9 F 06/30/23 18:27 Heart Rate 77 06/30/23 18:27 Respiratory Rate 20 06/30/23 18:27 Blood Pressure 142/89 H 06/30/23 18:27 Temperature 97.9 F 06/30/23 18:27 Heart Rate 77 06/30/23 18:27 Respiratory Rate 20 06/30/23 18:27 Blood Pressure 142/89 H 06/30/23 18:27 O2 Saturation If not protocol: Oxygen Flow, liters/minute - NST Procedure NST Procedure Start Time 18:10 Stop Time 18:32 - Results and Plan Findings/Impression: Patient is a 32-year-old -0-0-2 at 35 weeks 0 days gestation here for scheduled NST. NST Performed 06/30/2023 NST Read 06/30/2023 FHT: 135 bpm baseline, moderate variability, accelerations present, no decelerations. Reactive NST [place]: Quiescent Diagnosis Type 1 diabetes -CBC, CMP, urine protein:creatinine ratio 35 weeks gestation Continue with twice-weekly NST.
[2023-06-30 19:07] LABS: CREATININE,URINE 130.3 mg/dL; PROTEIN/CREATININE RATIO,URINE 0.1 (<=0.2)
[2023-06-30 19:16] LABS: BASOPHILS % (AUTO) 0.4 %; EOSINOPHILS # (AUTO) 0.1 10^3/uL (0.0-0.7); EOSINOPHILS % (AUTO) 0.9 %; HCT - HEMATOCRIT 34.9 % (37.0-47.0); HGB - HEMOGLOBIN 11.5 g/dL (12.0-16.0); LYMPHOCYTES # (AUTO) 1.7 10^3/uL (1.5-3.5); LYMPHOCYTES % (AUTO) 25.2 %; MEAN CORPUSCULAR HEMOGLOBIN 29.3 pg (27.0-31.0); MEAN PLATELET VOLUME 11.8 fL (7.9-10.8); MONOCYTES # (AUTO) 0.7 10^3/uL (0.0-1.0); NEUTROPHILS # (AUTO) 4.3 10^3/uL (1.5-6.6); NEUTROPHILS % (AUTO) 62.6 %; PLT - PLATELET COUNT 196 10^3/uL (130-450); RED BLOOD COUNT 3.92 10^6/uL (4.20-5.40); WHITE BLOOD COUNT 6.8 x10^3/uL (4.8-10.8)
[2023-06-30 19:25] VITALS: O2SAT 100
[2023-06-30 19:34] VITALS: BP 139/85
[2023-06-30 19:37] LABS: ALBUMIN 3.1 g/dL (3.2-5.5); ALBUMIN/GLOBULIN RATIO 1.2 (1.0-2.2); BILIRUBIN,TOTAL 0.3 mg/dL (0.2-1.0); CALCIUM 8.5 mg/dL (8.5-10.3); CREATININE 0.9 mg/dL (0.6-1.3); POTASSIUM 3.6 mmol/L (3.5-4.5); TOTAL PROTEIN 5.7 g/dL (6.4-8.9)
== END 2023-06-30 19:59 | disposition home or self-care (01) ==
LOC: WFO 18:08 → FBP 18:15 → WFO 19:59
PROVIDERS: ATTEND Obstetrics & Gynecology
DX: O24.913 Unspecified diabetes mellitus in pregnancy, third trimester (principal); Z3A.35 35 weeks gestation of pregnancy
CPT/HCPCS: 36415; 59025; 80053; 82570; 84156; 85025; 99215

== ENCOUNTER 2023-07-01 21:26 | Observation (INO) | payer OTHER ==
--- NOTE | 2023-07-01 22:30 | HISTORY & PHYSICAL EXAMINATION ---
Admit History - Visit Reason Visit Reason: Other (presents for follow up of elevated bps at home and then at the fire station. 170/110 range. some blurry vision in right eye driving here. no headache, nausea or vomiting.) - : 3 Parity: 2 Care: positive: [facility] Risk/History: positive: induced HTN, High risk, Other (patient with type 1 diabetes, class C with insulin pump and CGM. sugars under fair control but 10 days ago admitted to over weekend with sugars in 300s.) Complications This : positive: induced HTN Smoking Status: Never smoker - Mother's Labs Mother's Blood Type: positive: A Mother's RH: positive: Positive GBS: positive: Group B Step Negative Rubella Status: positive: Immune - HPI Diagnosis/Indication for NST: Other (hypertension in , diabetes in .) Vital Signs Temperature 98.1 F 07/01/23 21:38 Heart Rate 94 07/01/23 21:38 Respiratory Rate 16 07/01/23 21:38 Blood Pressure 141/102 H 07/01/23 21:38 Temperature 98.1 F 07/01/23 21:38 Heart Rate 94 07/01/23 21:38 Respiratory Rate 16 07/01/23 21:38 Blood Pressure 141/102 H 07/01/23 21:38 O2 Saturation If not protocol: Oxygen Flow, liters/minute - NST Procedure NST Procedure Start Time 18:17 Stop Time 18:45 NST done today in triage was reactive. baseline 140. no decels. moderate variability. - Results and Plan Findings/Impression: reactive nst. reassess in am. Meds/Allgy - Allergies Allergies/Adverse Reactions: Allergies Allergy/AdvReac Type Severity Reaction Status Date / Time No Known Drug Allergies Allergy Verified 06/20/23 17:45 Review of Systems - Eyes Eyes: reports: Blurred vision (on right only and just transient while driving here.) - Other Findings Other Findings: very swollen legs. Physical - Abdominal Exam Vital Signs: Temp Pulse Resp BP Pulse Ox O2 Flow Rate 98.1 F 94 16 141/102 H 07/01/23 21:38 07/01/23 21:38 07/01/23 21:38 07/01/23 21:38 Contraction Intensity: positive: Other (none) Uterine Resting Tone: positive: Soft (cervix exam deferred. reflexes 2-3+) - Monitoring Strip Review: positive: Category I Plan for Labor - Plan For Labor I expect patient to be DC'd or transferred within 96 hours.: Yes Plan for Labor: Admit for observation for htn in at 35 weeks. BPs prior to coming in were severe range for preeclampsia. we are not getting that here. will observe, check labs, check serial bps, collect 24 hour urine for protein. given her diabetes she is at high risk for preeclampsia.
[2023-07-01 22:40] LABS: BASOPHILS % (AUTO) 0.4 %; EOSINOPHILS # (AUTO) 0.1 10^3/uL (0.0-0.7); EOSINOPHILS % (AUTO) 0.8 %; HCT - HEMATOCRIT 35.2 % (37.0-47.0); HGB - HEMOGLOBIN 11.6 g/dL (12.0-16.0); LYMPHOCYTES # (AUTO) 1.7 10^3/uL (1.5-3.5); LYMPHOCYTES % (AUTO) 22.1 %; MEAN CORPUSCULAR HEMOGLOBIN 29.2 pg (27.0-31.0); MEAN CORPUSCULAR VOLUME 88.7 fL (81.0-99.0); MEAN PLATELET VOLUME 11.7 fL (7.9-10.8); MONOCYTES # (AUTO) 0.7 10^3/uL (0.0-1.0); MONOCYTES % (AUTO) 8.6 %; NEUTROPHILS # (AUTO) 5.1 10^3/uL (1.5-6.6); NEUTROPHILS % (AUTO) 67.6 %; PLT - PLATELET COUNT 202 10^3/uL (130-450); RED BLOOD COUNT 3.97 10^6/uL (4.20-5.40); RED CELL DISTRIBUTION WIDTH 13.8 % (12.0-15.0); WHITE BLOOD COUNT 7.6 x10^3/uL (4.8-10.8)
[2023-07-01 22:55] LABS: CALCIUM 8.4 mg/dL (8.5-10.3); CREATININE 0.7 mg/dL (0.6-1.3); POTASSIUM 3.5 mmol/L (3.5-4.5); URIC ACID 5.5 mg/dL (2.3-6.6)
[2023-07-01 23:09] LABS: CREATININE,URINE 104.8 mg/dL; PROTEIN/CREATININE RATIO,URINE 0.1 (<=0.2)
--- NOTE | 2023-07-01 23:13 | PROVIDER PROGRESS NOTE ---
Subjective - Subjective Subjective: chemistries reviewed and wnl. will continue to follow bps overnight. Objective - Vital Signs/Intake & Output Vital Signs: Vital Signs x48h Temp Pulse Pulse Resp BP BP 07/01/23 21:59 95 16 132/98 H 07/01/23 21:43 93 16 145/96 H 07/01/23 21:38 98.1 F 94 16 141/102 H - Lab Results Fish Bones: 07/01/23 22:35 07/01/23 22:35 Other Labs: Lab Results x24hrs 07/01/23 07/01/23 07/01/23 Range/Units 22:35 22:35 22:30 WBC 7.6 (4.8-10.8) x10^3/uL RBC 3.97 L (4.20-5.40) 10^6/uL Hgb 11.6 L (12.0-16.0) g/dL Hct 35.2 L (37.0-47.0) % MCV 88.7 (81.0-99.0) fL MCH 29.2 (27.0-31.0) pg MCHC 33.0 (32.0-36.0) g/dL RDW 13.8 (12.0-15.0) % Plt Count 202 (130-450) 10^3/uL MPV 11.7 H (7.9-10.8) fL Neut # (Auto) 5.1 (1.5-6.6) 10^3/uL Lymph # (Auto) 1.7 (1.5-3.5) 10^3/uL Forrest # (Auto) 0.7 (0.0-1.0) 10^3/uL Eos # (Auto) 0.1 (0.0-0.7) 10^3/uL Baso # (Auto) 0.0 (0.0-0.1) 10^3/uL Absolute Nucleated RBC 0.00 x10^3/uL Nucleated RBC % 0.0 /100WBC Sodium 135 (135-145) mmol/L Potassium 3.5 (3.5-4.5) mmol/L Chloride 106 (101-111) mmol/L Carbon Dioxide 22 (21-32) mmol/L Anion Gap 7.0 (6-13) BUN 10 (6-20) mg/dL Creatinine 0.7 (0.6-1.3) mg/dL Estimated GFR (MDRD) 97 (>89) Glucose 167 H (74-104) mg/dL Uric Acid 5.5 (2.3-6.6) mg/dL Calcium 8.4 L (8.5-10.3) mg/dL AST 18 (10-42) IU/L Urine Creatinine 104.8 mg/dL Ur Total Protein Timed 12 mg/dL Protein/Creatinin Ratio 0.1 (<=0.2)
[2023-07-02 02:38] VITALS: O2SAT 100
[2023-07-02 10:56] LABS: ESTIMATED AVERAGE GLUCOSE 151 mg/dL (70-100); HEMOGLOBIN A1c% 6.9 % (4.27-6.07)
[2023-07-02 11:26] VITALS: BP 131/88
--- NOTE | 2023-07-02 19:34 | PROCEDURE REPORT ---
- HPI Diagnosis/Indication for NST: Pre- Diabetes (diabetes and now htn.) Current EDU 08/04/23 Gestation 35 Weeks and 2 Days 3 Para 2 Vital Signs Temperature 98.1 F 07/01/23 21:38 Heart Rate 94 07/01/23 21:38 Respiratory Rate 16 07/01/23 21:38 Blood Pressure 141/102 H 07/01/23 21:38 Temperature 208.2 F H 07/02/23 10:35 Heart Rate 97 07/02/23 10:35 Respiratory Rate 16 07/02/23 10:35 Blood Pressure 131/88 H 07/02/23 11:20 O2 Saturation 100 07/02/23 02:30 If not protocol: Oxygen Flow, liters/minute - NST Procedure NST Procedure Start Date 07/02/23 Start Time 08:48 Stop Time 10:17 Vibroacoustic Stimulation Used No Patient States Movement Yes NST reviewed in real time and reactive. no decels. + acels. baseline 145.
--- NOTE | 2023-07-02 19:37 | DISCHARGE SUMMARY ---
Discharge Summary Admit Date: 07/01/23 Discharge Date: 07/02/23 Code Status: Attempt Resuscitation Discharge Disposition: 01 Home, Self Care - DIAGNOSES Admission Diagnoses: elevated bp without diagnosis of htn in 3rd trimester . pregestational diabetes. - HPI History of Present Illness: felt off and bps at home were elevated. went to fire station and also elevated there. 170/110 per patient report. drove to [facility] for evaluation. on the way some blurry visual which is unusual. - HOSPITAL COURSE Hospital Course: pateint observed overnight. no severe range bps while here. labs normal. felt ok. ready for discharge in am with close follow up. - ALLERGIES Allergies/Adverse Reactions: Allergies Allergy/AdvReac Type Severity Reaction Status Date / Time No Known Drug Allergies Allergy Verified 06/20/23 17:45 - PHYSICAL EXAM AT DISCHARGE General Appearance: positive: No acute distress, Alert Respiratory: positive: No respiratory distress Abdomen: positive: Non-tender Extremities: positive: Non-tender, Pedal edema (1 to 2+) Reflexes: Bicep (R): 2+, Bicep (L): 3+, Knee (R): 2+, Knee (L): 1+ - LABS Result Diagrams: 07/01/23 22:35 07/01/23 22:35 - FOLLOW UP Follow Up: follow up as scheduled. planning repeat c section at . twice weekly nsts. call if headache, visual changes. - TIME SPENT Time Spent in Discharge (Minutes): 20
== END 2023-07-02 12:28 | disposition home or self-care (01) ==
LOC: WFO 21:26 → FBP 21:28 → WFO 22:31
PROVIDERS: ADMIT Obstetrics & Gynecology; ATTEND Obstetrics & Gynecology
DX: O99.891 Other specified diseases and conditions complicating pregnancy (principal); R03.0 Elevated blood-pressure reading, without diagnosis of hypertension; O24.013 Pre-existing type 1 diabetes mellitus, in pregnancy, third trimester; Z79.4 Long term (current) use of insulin; H54.7 Unspecified visual loss; Z3A.35 35 weeks gestation of pregnancy; Z96.41 Presence of insulin pump (external) (internal)
CPT/HCPCS: 36415; 59025; 80048; 82570; 83036; 84156; 84450; 84550; 85025; 99215; G0378